=== PATIENT | male | born 1950 | race Native Hawaiian/Other Pacific Islander ===

== ENCOUNTER 2017-12-05 07:19 | Day surgery (SDC) | payer MEDICARE ==
[2017-12-04 13:31] VITALS: BMI 27.4
[2017-12-05] MEDS ORDERED: Propofol 10 mg/ml Inj (20 ML) ONE ×2 (08:49→09:17)
[2017-12-05] MEDS ORDERED: Lidocaine Hydrochloride 5 ML INJ ONE (08:49)
[2017-12-05] MEDS ORDERED: Lactated Ringer's 500 ML IV ONE ×3 (08:49→09:30)
[2017-12-05 10:07] VITALS: O2SAT 99
[2017-12-05 11:15] VITALS: BP 122/71; PULSE 62; RESP 19; TEMP 97.5
== END 2017-12-05 10:45 | disposition home or self-care (01) ==
LOC: C.ENDO 07:19
PROVIDERS: ATTEND Internal Medicine Gastroenterology
DX: Z12.11 Encounter for screening for malignant neoplasm of colon (principal); K21.9 Gastro-esophageal reflux disease without esophagitis; D12.0 Benign neoplasm of cecum; D12.5 Benign neoplasm of sigmoid colon; K29.50 Unspecified chronic gastritis without bleeding
CPT/HCPCS: 43239; 45380; 45385; 88305; 88312; 88342; J2704; J7120